=== PATIENT | female | born 1940 | race Two or more races ===

== ENCOUNTER 2020-11-04 13:08 | Outpatient (CLI) | payer OTHER ==
--- NOTE | 2020-11-04 13:54 | RAD ---
PA AND LATERAL CHEST: HISTORY: Cough. FINDINGS: Heart size is within normal limits. The aorta is mildly tortuous. Slightly increased lung markings are seen. This could be chronic in nature. It is difficult to exclude early ground-glass infiltrate s. IMPRESSION: Probable chronic lung change as described above. POS: [facility]
== END 2020-11-04 13:09 | disposition home or self-care (01) ==
LOC: BICRAD 13:08
PROVIDERS: ATTEND Internal Medicine
DX: R05 Cough (principal)
CPT/HCPCS: 71046